=== PATIENT | male | born 1970 | race Hispanic/Latino ===

== ENCOUNTER 2018-07-15 09:59 | Emergency (ER) | payer SELFPAY ==
[2018-07-15] VITALS (10 sets, daily range): BP systolic 108–134; BP diastolic 81–87
[~2018-07-15 09:59] MED LIST: PRED20TA3 PO
[2018-07-15 10:44] LABS: BASOPHILS % (AUTO) 0.4 % (0.0-5.0); EOSINOPHILS % (AUTO) 0.6 % (0.0-8.0); HEMATOCRIT 42.9 % (42-54); LYMPHOCYTES % (AUTO) 25.1 % (21.0-51.0); MEAN CORPUSCULAR HEMOGLOBIN 30.3 pg (27.0-33.0); MEAN CORPUSCULAR VOLUME 89.3 fL (79-99); MONOCYTES % (AUTO) 6.3 % (3.0-13.0); NEUTROPHILS % (AUTO) 67.6 % (40.0-77.0); PLATELET COUNT (AUTO) 253 K/uL (130-400); RED CELL DISTRIBUTION WIDTH 14.1 % (11.0-15.5); WHITE BLOOD COUNT (AUTO) 7.9 K/uL (4.8-10.8)
[2018-07-15 10:48] LABS: APPEARANCE,URINE Clear (CLEAR); BILIRUBIN,URINE Negative (NEGATIVE); GLUCOSE, URINE (UA) Negative (NEGATIVE); KETONES,URINE Trace mg/dL (NEGATIVE); LEUKOCYTE ESTERASE ,URINE Negative (NEGATIVE); NITRATE,URINE Negative (NEGATIVE); OCCULT BLOOD,URINE Negative (NEGATIVE); PROTEIN,URINE Negative (NEGATIVE)
[2018-07-15 10:49] LABS: COLOR,URINE YELLOW (YELLOW)
[2018-07-15 10:54] LABS: CREATININE 0.8 mg/dL (0.5-1.5)
[2018-07-15 10:55] LABS: AMYLASE 43 U/L (25-115); LIPASE 63 U/L (114-286)
[2018-07-15 10:59] LABS: ALBUMIN 3.9 g/dL (3.5-5.0); BILIRUBIN,TOTAL 0.6 mg/dL (0.2-1.0); TOTAL PROTEIN, SERUM 7.4 g/dL (6.0-8.3)
[2018-07-15] MEDS ORDERED: ONDANSETRON HCL 4 MG/2 ML VIAL ONE (11:14)
[2018-07-15] MEDS ORDERED: KETOROLAC TROMETHAMINE 30MG/ML ONE (11:14)
[2018-07-15] MEDS ORDERED: MORPHINE SULFATE 4 MG/1ML SYG ONE (11:15)
[2018-07-15] MEDS ORDERED: IOHEXOL-350 50ML VIAL IV ONE ×2 (11:21→12:15)
[2018-07-15] MEDS ORDERED: PROPOFOL 1000 MG/100 ML 100 ML IV ONE ×2 (11:49→11:58)
[2018-07-15] MEDS ORDERED: SUCCINYLCHOLINE CHLORIDE 20 MG/ML 10 ML VIAL ONE (11:50)
[2018-07-15] MEDS ORDERED: FENTANYL CITRATE PF 50 MCG/1 ML 2ML VIAL ONE ×2 (11:58→12:23)
== END 2018-07-15 14:49 | disposition home or self-care (01) ==
LOC: EDH 09:59
DX: R10.13 Epigastric pain (principal)
CPT/HCPCS: 36415; 43232; 74330; 80053; 81003; 82150; 83690; 85025; 88173; 88305; 99285; A4215; C1769; C1773; J0330; J2704 ×2; J3010 ×2; Q9967; J1885; J2270; J2405

== ENCOUNTER 2021-05-02 14:06 | Emergency (ER) | payer MEDICARE, SELFPAY ==
[~2021-05-02] VITALS: Ht 177.8 cm; Wt 79.4 kg
[2021-05-02 14:12] VITALS: BP 132/78
[2021-05-02] MEDS ORDERED: PANT40TA54 PO (15:44)
[2021-05-02] MEDS ORDERED: ACET-3194 PO (15:44)
[2021-05-02 16:07] VITALS: BP 139/84
== END 2021-05-02 16:09 | disposition home or self-care (01) ==
LOC: EDH 14:06
DX: R53.83 Other fatigue (principal); F10.10 Alcohol abuse, uncomplicated; J02.9 Acute pharyngitis, unspecified; Z20.822 Contact with and (suspected) exposure to COVID-19; Z79.52 Long term (current) use of systemic steroids
CPT/HCPCS: 87635; 87804 ×2; 99283; C9803

== ENCOUNTER 2021-06-23 13:04 | Emergency (ER) | payer MEDICARE ==
[~2021-06-23] VITALS: Ht 177.8 cm; Wt 77.1 kg
[~2021-06-23 13:04] MED LIST changes: +ACET-3194 PO; +PANT40TA54 PO
[2021-06-23] MEDS ORDERED: ASPIRIN 325MG TAB PO ONE (13:30)
[2021-06-23 13:48] LABS: BASOPHILS % (AUTO) 0.4 % (0.0-5.0); EOSINOPHILS % (AUTO) 0.6 % (0.0-8.0); HEMATOCRIT 39.3 % (42-54); MEAN CORPUSCULAR HEMOGLOBIN 27.9 pg (27.0-33.0); MEAN CORPUSCULAR HGB CONC 32.3 g/dL (32.0-36.0); MEAN CORPUSCULAR VOLUME 86.2 fL (79-99); MONOCYTES % (AUTO) 7.7 % (3.0-13.0); NEUTROPHILS % (AUTO) 74.1 % (40.0-77.0); PLATELET COUNT (AUTO) 202 K/uL (130-400); RED BLOOD CELL COUNT(AUTO) 4.56 MIL/uL (4.50-6.20); RED CELL DISTRIBUTION WIDTH 14.1 % (11.0-15.5); WHITE BLOOD COUNT (AUTO) 5.2 K/uL (4.8-10.8)
[2021-06-23 14:00] LABS: CREATININE 1.3 mg/dL (0.5-1.5)
[2021-06-23 14:04] LABS: ALBUMIN 3.6 g/dL (3.5-5.0); BILIRUBIN,TOTAL 0.7 mg/dL (0.2-1.0); TOTAL PROTEIN, SERUM 8.3 g/dL (6.0-8.3)
[2021-06-23 14:12] VITALS: BP 156/89
[2021-06-23 14:15] LABS: APPEARANCE,URINE Clear (CLEAR); BILIRUBIN,URINE Negative (NEGATIVE); COLOR,URINE Yellow (YELLOW); GLUCOSE, URINE (UA) Negative (NEGATIVE); KETONES,URINE Negative (NEGATIVE); LEUKOCYTE ESTERASE ,URINE Negative (NEGATIVE); NITRATE,URINE Negative (NEGATIVE); OCCULT BLOOD,URINE Negative (NEGATIVE); PROTEIN,URINE Negative (NEGATIVE); UROBILINOGEN,URINE 0.2 mg/dL (0.2-1.0)
[2021-06-23 14:20] LABS: B-TYPE NATRIURETIC PEPTIDE 24 pg/mL (0-100)
[2021-06-23 14:22] LABS: AMPHET/METH SCREEN,URINE NEGATIVE (NEGATIVE); BARBITURATE SCREEN, URINE NEGATIVE (NEGATIVE); BENZODIAZEPINES SCREEN,URINE NEGATIVE (NEGATIVE); CANNABINOID SCREEN,URINE NEGATIVE (NEGATIVE); COCAINE SCREEN,URINE NEGATIVE (NEGATIVE); OPIATE SCREEN,URINE NEGATIVE (NEGATIVE); PHENCYCLIDINE SCREEN,URINE NEGATIVE (NEGATIVE)
[2021-06-23] MEDS ORDERED: HYDR-3421 PO (15:38)
[2021-06-23] MEDS ORDERED: HYDROXYZINE 25 MG TABLET PO ONE (16:00)
[2021-06-23 16:37] VITALS: BP 140/87
[2021-07-09] MEDS ORDERED: ESCI-8 PO (12:51)
[2021-07-09] MEDS ORDERED: MULT-1259 PO (12:51)
== END 2021-06-23 16:38 | disposition home or self-care (01) ==
LOC: EDH 13:04
DX: F41.9 Anxiety disorder, unspecified (principal); R07.89 Other chest pain; F32.9 Major depressive disorder, single episode, unspecified; K21.9 Gastro-esophageal reflux disease without esophagitis; Z79.52 Long term (current) use of systemic steroids; Z79.82 Long term (current) use of aspirin
CPT/HCPCS: 36415; 71045; 80053; 80305; 81003; 83880; 84484; 85025; 93005

== ENCOUNTER 2021-07-10 06:10 | Day surgery (SDC) | payer MEDICARE ==
[~2021-07-10] VITALS: Ht 177.8 cm; Wt 79.4 kg
[~2021-07-10 06:10] MED LIST changes: -ACET-3194 PO; +ESCI-8 PO; +MULT-1259 PO; -PRED20TA3 PO
[2021-07-10] MEDS ORDERED: 0.9%NACL 1000ML 1,000 ML IV ONE (06:22)
[2021-07-10 06:48] VITALS: BP 143/87
[2021-07-10] MEDS ORDERED: PROPOFOL 10 MG/ML 20ML VIAL IV ONE (08:03)
[2021-07-10 08:34] VITALS: BP 143/80
[2021-07-10 08:40] VITALS: BP 134/79
[2021-07-10 08:45] VITALS: BP 134/76
== END 2021-07-10 09:04 | disposition home or self-care (01) ==
LOC: DAH 06:10 → ENDO 06:10 → EDSTATUS 15:26
PROVIDERS: ATTEND Internal Medicine
DX: K86.9 Disease of pancreas, unspecified (principal); K83.8 Other specified diseases of biliary tract; R53.83 Other fatigue; R74.8 Abnormal levels of other serum enzymes; K59.01 Slow transit constipation; D12.6 Benign neoplasm of colon, unspecified; R63.4 Abnormal weight loss; K21.9 Gastro-esophageal reflux disease without esophagitis; Z86.010 Personal history of colon polyps; F32.9 Major depressive disorder, single episode, unspecified; Z79.899 Other long term (current) drug therapy; Z20.822 Contact with and (suspected) exposure to COVID-19
CPT/HCPCS: 43242; 87635; 88108; 88305; A4215 ×3; A4221; A4222; A4223; A4606; A4620; A4663; C9803; J2704; J7030

== ENCOUNTER 2021-08-07 09:02 | Day surgery (SDC) | payer MEDICARE ==
[~2021-08-07] VITALS: Ht 175.3 cm; Wt 73.5 kg
[2021-08-07] VITALS (14 sets, daily range): BP systolic 119–169; BP diastolic 78–97
[~2021-08-07 09:02] MED LIST changes: +0.9%NACL 1000ML 1,000 ML IV ONE
[2021-08-07] MEDS ORDERED: PRED20TA3 PO (10:06)
[2021-08-07] MEDS ORDERED: IOHEXOL-350 50ML VIAL IV ONE (10:13)
[2021-08-07] MEDS ORDERED: SUCCINYLCHOLINE 200MG/10ML SYR ONE (11:10)
[2021-08-07] MEDS ORDERED: PROPOFOL 10 MG/ML 20ML VIAL IV ONE (11:10)
[2021-08-07] MEDS ORDERED: MEPERIDINE-PF 25 MG/ML SYG ONE (12:39)
== END 2021-08-07 14:20 | disposition home or self-care (01) ==
LOC: DAH 09:02 → ENDO 09:02
PROVIDERS: ATTEND Internal Medicine
DX: R93.2 Abnormal findings on diagnostic imaging of liver and biliary tract (principal); K86.9 Disease of pancreas, unspecified; Z20.822 Contact with and (suspected) exposure to COVID-19; K80.51 Calculus of bile duct without cholangitis or cholecystitis with obstruction; K83.8 Other specified diseases of biliary tract; K21.9 Gastro-esophageal reflux disease without esophagitis; K59.01 Slow transit constipation; F32.9 Major depressive disorder, single episode, unspecified; R63.4 Abnormal weight loss; Z68.23 Body mass index [BMI] 23.0-23.9, adult; Z79.899 Other long term (current) drug therapy
CPT/HCPCS: 43265; 43273; 43274; 74328; 87635; A4215 ×2; A4221; A4222; A4223; A4606; A4620; A4657; A4663; C1769; C1874; C9803; J0330; J2175; J2704; J7030; Q9967; 74330

== ENCOUNTER → 2022-08-08 | Outpatient (CLI) | payer MEDICARE ==
[~2022-08-08] MED LIST changes: -0.9%NACL 1000ML 1,000 ML IV ONE; +IOHEXOL 350 MG/ML 100ML INFUS..BTL IV ONE; +PRED20TA3 PO
== END | disposition home or self-care (01) ==
LOC: RAH 09:12
PROVIDERS: ATTEND Internal Medicine
DX: K86.2 Cyst of pancreas (principal); K86.9 Disease of pancreas, unspecified; K80.20 Calculus of gallbladder without cholecystitis without obstruction
CPT/HCPCS: 74170; Q9967

== ENCOUNTER → 2023-02-27 | Outpatient (CLI) | payer MEDICARE ==
[~2023-02-27] MED LIST changes: -IOHEXOL 350 MG/ML 100ML INFUS..BTL IV ONE
== END | disposition home or self-care (01) ==
LOC: RAH 13:28
PROVIDERS: ATTEND Internal Medicine
DX: R93.41 Abnormal radiologic findings on diagnostic imaging of renal pelvis, ureter, or bladder (principal); K80.20 Calculus of gallbladder without cholecystitis without obstruction
CPT/HCPCS: 74176